=== PATIENT | female | born 1975 | race African-American/Black ===

== ENCOUNTER 2024-02-13 22:04 | Inpatient (IN) | payer OTHER ==
[2024-02-13 22:51] VITALS: RESP 16; BMI 19.2
[2024-02-14] MEDS ORDERED: BENZOCAINE/MENTHOL (CHLORASEPTIC ) LOZENGE MM PRN (02:42)
[2024-02-14] MEDS ORDERED: MAGNESIUM HYDROX 2400MG/30ML ORAL SUSPENSION 30 ML CUP PO PRN (02:42)
[2024-02-14] MEDS ORDERED: IBUPROFEN 600 MG TABLET (FP) PO PRN (02:42)
[2024-02-14] MEDS ORDERED: BENZONATATE 200 MG CAPSULE PO PRN (02:42)
[2024-02-14] MEDS ORDERED: NICOTINE POLACRILEX 2 MG GUM BUC PRN (02:42)
[2024-02-14] MEDS ORDERED: ACETAMINOPHEN 325 MG TABLET (FP) PO PRN ×2 (02:42→18:09)
[2024-02-14] MEDS ORDERED: NALOXONE (NYS OPIOID OVERDOSE PROGRAM) 4 MG/0.1 ML SPRAY NS PRN (02:42)
[2024-02-14] MEDS ORDERED: POLYETHYLENE GLYCOL (HEALTHYLAX) 3350 17 GM PACKET PO PRN (02:42)
[2024-02-14] MEDS ORDERED: IBUPROFEN 400 MG TABLET (FP) PO PRN (02:42)
[2024-02-14] MEDS ORDERED: guaiFENesin 600 MG TABLET.ER (FP) PO PRN (02:42)
[2024-02-14] MEDS ORDERED: MAG HYDROX/AL HYDROX/SIMETH 30 ML UNIT-DOSE CUP PO PRN (02:42)
[2024-02-14] MEDS ORDERED: NALOXONE HCL 0.4 MG/ML VIAL IVPUSH PRN (02:42)
[2024-02-14] MEDS ORDERED: LOPERAMIDE HCL 2 MG CAPSULE PO PRN (02:42)
[2024-02-14] MEDS: NICOTINE 14 MG/24 HOURS TOPICAL PATCH TD SCH (05:30)
[2024-02-14] MEDS: PRENATAL VITAMINS W/ FOLIC ACID TABLET (FP) PO SCH (05:30)
[2024-02-14] MEDS: ONDANSETRON 8 MG TABLET (FP) PO ONE (08:42)
[2024-02-14 08:44] VITALS: BP 202/131; PULSE 98; TEMP 97.5
[2024-02-14] MEDS: TRIMETHOBENZAMIDE HCL 200MG/2ML INJ IM ONE (08:50)
[2024-02-14] MEDS: cloNIDine HCL 0.1 MG TABLET PO ONE (09:35)
[2024-02-14] MEDS: methaDONE HCL 10 MG TABLET PO ONE (09:35)
[2024-02-14] MEDS ORDERED: ACETAMINOPHEN 1000 MG/100 ML BAG IVPB PRN (18:08)
[2024-02-14] MEDS ORDERED: MELATONIN 5 MG TABLETS PO SCH (22:00)
[2024-02-14] MEDS ORDERED: THIAMINE 100 MG TABLET PO SCH (22:00)
[2024-02-15] MEDS ORDERED: methaDONE HCL 10 MG TABLET PO SCH (06:00)
[2024-02-23] MEDS ORDERED: ERGOCALCIFEROL (VIT D2) 50,000 UNIT (1.25 MG) CAPSULE PO SCH (10:00)
== END 2024-02-14 23:14 | disposition short-term general hospital (02) | DRG 772 ==
LOC: YASAS 22:04 → Y3NR 02-14 02:48
PROVIDERS: ADMIT Allergy & Immunology; ATTEND Psychiatry & Neurology Pain Medicine
PROC: HZ42ZZZ Group Counseling for Substance Abuse Treatment, Cognitive-Behavioral (ICD-10-PCS; principal; 2024-02-14)
DX: F10.20 Alcohol dependence, uncomplicated (principal); F11.20 Opioid dependence, uncomplicated; F17.210 Nicotine dependence, cigarettes, uncomplicated; F41.9 Anxiety disorder, unspecified; I10 Essential (primary) hypertension; R11.2 Nausea with vomiting, unspecified; R42 Dizziness and giddiness; Z93.3 Colostomy status; Z59.00 Homelessness unspecified
CPT/HCPCS: 80305; 80307

== ENCOUNTER 2024-02-14 09:56 | Inpatient (IN) | payer OTHER ==
[2024-02-14] MEDS ORDERED: hydrALAZINE HCL 20 MG/ML VIAL ONE (10:39)
[2024-02-14] MEDS ORDERED: BUPRENORPHINE/NALOXONE 8 MG/2 MG FILM PACKET ONE (10:39)
[2024-02-14] MEDS: BUPRENORPHINE/NALOXONE 8 MG/2 MG FILM PACKET SL ONE (10:45)
[2024-02-14] MEDS: hydrALAZINE HCL 20 MG/ML VIAL IVPUSH ONE (10:45)
[2024-02-14] MEDS: cloNIDine HCL 0.1 MG TABLET PO ONE ×2 (11:10→13:32)
[2024-02-14] MEDS ORDERED: ACETAMINOPHEN INJECTION 100 ML IVPB ONE (11:11)
[2024-02-14 11:16] LABS: HEMATOCRIT 44.6 % (32.4-45.2); HEMOGLOBIN 14.5 GM/dL (10.7-15.3); MCH 28.2 pg (25.7-33.7); MCHC 32.5 g/dl (32.0-36.0); MEAN CELL VOLUME 86.7 fl (80-96); MEAN PLT VOLUME 8.9 fl (7.5-11.1); PLATELET COUNT 289 10^3/uL (134-434); RBC 5.15 M/mm3 (3.60-5.2); RDW 15.7 % (11.6-15.6); WHITE BLOOD COUNT 9.8 K/mm3 (4.0-10.0)
[2024-02-14] MEDS: ACETAMINOPHEN 1000 MG/100 ML BAG IVPB ONE (11:16)
[2024-02-14 11:35] LABS: POTASSIUM 4.4 mmol/L (3.5-5.1)
[2024-02-14 11:38] LABS: ALBUMIN 3.9 g/dl (3.4-5.0); BLOOD UREA NITROGEN 20.2 mg/dL (7-18); CALCIUM 10.9 mg/dL (8.5-10.1); MAGNESIUM 2.2 mg/dL (1.8-2.4)
[2024-02-14 11:41] LABS: CREATININE 0.9 mg/dL (0.55-1.3)
[2024-02-14 11:44] LABS: BILIRUBIN,TOTAL 0.2 mg/dL (0.2-1); TOT PROT 8.1 g/dl (6.4-8.2)
[2024-02-14 11:46] LABS: N-TERMINAL BNP 519.8 pg/ml (5-125)
[2024-02-14] MEDS ORDERED: HALOPERIDOL LACTATE 5 MG/ML ONE (11:56)
[2024-02-14] MEDS: HALOPERIDOL LACTATE 5 MG/ML IM ONE (11:59)
[2024-02-14] MEDS ORDERED: cloNIDine HCL 0.1 MG TABLET ONE (13:29)
[2024-02-14] MEDS ORDERED: TRIMETHOBENZAMIDE HCL 200MG/2ML INJ IM ONE (13:45)
[2024-02-14] MEDS ORDERED: HYDROmorphone HCl 2 MG/ML VIAL ONE (14:15)
[2024-02-14] MEDS ORDERED: dilTIAZem HCL 125 MG/25 ML - 25 ML VIAL ONE (14:16)
[2024-02-14] MEDS ORDERED: niCARdipine HCL 25 MG/10 ML AMPUL IVPB ONE (14:17)
[2024-02-14] MEDS: NICARDIPINE 25 MG in DEXTROSE 5%-WATER - 240 ML IVPB SCH (14:30)
[2024-02-14] MEDS: SODIUM CHLORIDE 0.9% 500 ML INFUS.BAG IV ONE (14:31)
[2024-02-14] MEDS: HYDROmorphone HCl 2 MG/ML VIAL IVPUSH ONE (14:31)
[2024-02-14] MEDS: methaDONE HCL 10 MG TABLET PO SCH (16:16)
[2024-02-14] MEDS ORDERED: ACETAMINOPHEN 1000 MG/100 ML BAG IVPB PRN (18:40)
[2024-02-14 18:48] LABS: URINE APPEARANCE CLEAR; URINE BILIRUBIN NEGATIVE (NEGATIVE); URINE COLOR YELLOW; URINE GLUCOSE (UA) 100 (NEGATIVE); URINE KETONE NEGATIVE (NEGATIVE)
[2024-02-14 18:49] LABS: PH,URINE >= 9.0 (5.0-8.0); URINE LEUK ESTERASE NEGATIVE (NEGATIVE); URINE NITRITE NEGATIVE (NEGATIVE); URINE PROTEIN TRACE (NEGATIVE); URINE UROBILINOGEN 0.2 mg/dL (0.2-1.0)
[2024-02-14] MEDS ORDERED: methaDONE HCL 10 MG TABLET PO SCH (19:45)
[2024-02-14 19:56] LABS: EPI CELLS 1.1 /uL (0-25.1); HYALINE CASTS 0.29 /uL (0-3.1); URINE BACTERIA 1.8 /uL (0-1359); URINE RBC 175.6 /uL (0-23.9); URINE WBC 1.8 /uL (0-25.8)
[2024-02-14] MEDS: ONDANSETRON 4 MG/2 ML VIAL IVPUSH ONE (20:11)
[2024-02-14] MEDS: MELATONIN 5 MG TABLETS PO SCH (21:31)
[2024-02-14] MEDS: CHLORHEXIDINE GLUCONATE 4% CLEANSER FOR DECOLONIZATION TP SCH (21:32)
[2024-02-14] MEDS: MUPIROCIN 2% TOPICAL OINTMENT FOR DECOLONIZATION NS SCH (21:32)
[2024-02-15] MEDS ORDERED: niCARdipine HCL 25 MG/10 ML AMPUL IVPB ONE (04:16)
[2024-02-15] MEDS: methaDONE HCL 10 MG TABLET PO SCH (06:21)
[2024-02-15 08:14] LABS: BASO % 0.2 % (0-2.0); EOS % 0.1 % (0-4.5); HEMATOCRIT 44.9 % (32.4-45.2); HEMOGLOBIN 14.5 GM/dL (10.7-15.3); INR 0.86 (0.83-1.09); LYMPH % 9.9 % (8-40); MCH 27.8 pg (25.7-33.7); MCHC 32.2 g/dl (32.0-36.0); MEAN CELL VOLUME 86.1 fl (80-96); MEAN PLT VOLUME 8.7 fl (7.5-11.1); MONO % 4.7 % (3.8-10.2); NEUT % 85.1 % (42.8-82.8); PLATELET COUNT 356 10^3/uL (134-434); PROTHROMBIN TIME (PATIENT) 9.8 SEC (9.7-13.0); RBC 5.22 M/mm3 (3.60-5.2); RDW 16.1 % (11.6-15.6); WHITE BLOOD COUNT 12.4 K/mm3 (4.0-10.0)
[2024-02-15 08:17] LABS: ACTIVATED PTT 24.5 SECONDS (25.2-36.5)
[2024-02-15 08:36] LABS: CALCIUM 10.4 mg/dL (8.5-10.1); CREATININE 0.9 mg/dL (0.55-1.3); MAGNESIUM 2.1 mg/dL (1.8-2.4)
[2024-02-15 08:38] LABS: ALBUMIN 3.9 g/dl (3.4-5.0); BLOOD UREA NITROGEN 16.4 mg/dL (7-18); TOT PROT 8.4 g/dl (6.4-8.2)
[2024-02-15 08:40] LABS: PHOSPHOROUS 5.1 mg/dL (2.5-4.9)
[2024-02-15 08:42] LABS: BILIRUBIN,TOTAL 0.6 mg/dL (0.2-1)
[2024-02-15] MEDS: FAMOTIDINE 20 MG/50 ML IVPB 20 MG/50 ML MG IVPB SCH ×2 (10:18→21:03)
[2024-02-15] MEDS: ENOXAPARIN NA (PORCINE) 30 MG/0.3 ML DISP.SYRIN SQ SCH (12:18)
[2024-02-15] MEDS: amLODIPine BESYLATE 5 MG TABLET (FP) PO SCH (13:18)
[2024-02-15] MEDS ORDERED: ACETAMINOPHEN 1000 MG/100 ML BAG IVPB PRN (16:25)
[2024-02-15] MEDS: diphenhydrAMINE HCL 25 MG CAPSULE (FP) PO PRN (19:01)
[2024-02-15] MEDS: MELATONIN 5 MG TABLETS PO SCH (21:03)
[2024-02-15 22:04] VITALS: RESP 18
[2024-02-16] MEDS: methaDONE HCL 10 MG TABLET PO SCH (06:30)
[2024-02-16 06:41] VITALS: BP 125/75; PULSE 72; TEMP 98.8
[2024-02-16 07:18] LABS: BASO % 0.6 % (0-2.0); EOS % 1.5 % (0-4.5); HEMOGLOBIN 12.8 GM/dL (10.7-15.3); LYMPH % 36.3 % (8-40); MCH 28.3 pg (25.7-33.7); MCHC 32.8 g/dl (32.0-36.0); MEAN CELL VOLUME 86.4 fl (80-96); MEAN PLT VOLUME 8.5 fl (7.5-11.1); MONO % 11.9 % (3.8-10.2); NEUT % 49.7 % (42.8-82.8); PLATELET COUNT 297 10^3/uL (134-434); RBC 4.52 M/mm3 (3.60-5.2); RDW 15.8 % (11.6-15.6); WHITE BLOOD COUNT 6.2 K/mm3 (4.0-10.0)
[2024-02-16 07:34] LABS: POTASSIUM 4.6 mmol/L (3.5-5.1)
[2024-02-16 07:36] LABS: CALCIUM 9.9 mg/dL (8.5-10.1)
[2024-02-16 07:37] LABS: BLOOD UREA NITROGEN 31.5 mg/dL (7-18)
[2024-02-16 07:40] LABS: BILIRUBIN,DIRECT 0.1 mg/dL (0.0-0.2); CREATININE 1.1 mg/dL (0.55-1.3)
[2024-02-16 07:41] LABS: BILIRUBIN,TOTAL 0.2 mg/dL (0.2-1)
[2024-02-16 07:44] LABS: TOT PROT 6.3 g/dl (6.4-8.2)
[2024-02-16] MEDS: ENOXAPARIN NA (PORCINE) 30 MG/0.3 ML DISP.SYRIN SQ SCH (10:24)
[2024-02-16 12:43] VITALS: BMI 18.5
== END 2024-02-16 13:55 | disposition other institution (70) | DRG 199 ==
LOC: JER 09:56 → JERBED 13:30 → JICU 16:31 → J7W 02-15 16:23
PROVIDERS: ADMIT Internal Medicine Pulmonary Disease; ATTEND Internal Medicine
DX: I16.0 Hypertensive urgency (principal); K86.1 Other chronic pancreatitis; F11.23 Opioid dependence with withdrawal; F17.210 Nicotine dependence, cigarettes, uncomplicated; R11.2 Nausea with vomiting, unspecified; R74.01 Elevation of levels of liver transaminase levels; Z59.00 Homelessness unspecified; Z93.2 Ileostomy status; Z93.3 Colostomy status; I10 Essential (primary) hypertension
CPT/HCPCS: 36415; 70450-TC; 71045-TC-FY; 73552-TC-LT-FY; 74018-TC-FY; 74177-TC; 80048; 80053; 80076; 81003; 82150; 83605; 83690; 83735; 83880; 84100; 84484; 84703; 85025; 85027; 85610; 85730; 86803; 87086; 87340; 87517; 87635; 93005; 93010; 99285-25; J0131; Q9967

== ENCOUNTER 2024-02-16 13:55 | Inpatient (IN) | payer OTHER ==
[2024-02-16 14:46] VITALS: BMI 18.5
[2024-02-16] MEDS ORDERED: POLYETHYLENE GLYCOL (HEALTHYLAX) 3350 17 GM PACKET PO PRN (15:27)
[2024-02-16] MEDS ORDERED: BENZONATATE 200 MG CAPSULE PO PRN (15:27)
[2024-02-16] MEDS ORDERED: NALOXONE HCL (KLOXXADO) 8 MG SPRAY NS PRN (15:27)
[2024-02-16] MEDS ORDERED: MAGNESIUM HYDROX 2400MG/30ML ORAL SUSPENSION 30 ML CUP PO PRN (15:27)
[2024-02-16] MEDS ORDERED: NALOXONE HCL 0.4 MG/ML VIAL IM PRN (15:27)
[2024-02-16] MEDS ORDERED: guaiFENesin 600 MG TABLET.ER (FP) PO PRN (15:27)
[2024-02-16] MEDS ORDERED: BENZOCAINE/MENTHOL (CHLORASEPTIC ) LOZENGE MM PRN (15:27)
[2024-02-16] MEDS: MELATONIN 5 MG TABLETS PO SCH (21:35)
[2024-02-16] MEDS: THIAMINE 100 MG TABLET PO SCH (21:35)
[2024-02-16] MEDS: hydrOXYzine PAMOATE 25 MG CAPSULE (FP) PO PRN (21:35)
[2024-02-17] MEDS: MELATONIN 5 MG TABLETS PO ONE (02:46)
[2024-02-17] MEDS: amLODIPine BESYLATE 5 MG TABLET (FP) PO SCH (10:02)
[2024-02-17] MEDS: PRENATAL VITAMINS W/ FOLIC ACID TABLET (FP) PO SCH (10:02)
[2024-02-17] MEDS: cloNIDine HCL 0.1 MG TABLET PO SCH (10:21)
[2024-02-17] MEDS: methaDONE HCL 10 MG TABLET PO ONE (10:21)
[2024-02-17] MEDS: methaDONE HCL 10 MG TABLET PO SCH (10:50)
[2024-02-17] MEDS ORDERED: methaDONE HCL 10 MG TABLET PO PRN (11:39)
[2024-02-17] MEDS: QUEtiapine FUMARATE 50 MG TABLET PO SCH (21:03)
[2024-02-17] MEDS ORDERED: QUEtiapine FUMARATE 100 MG TABLET (FP) PO SCH (22:00)
[2024-02-18] MEDS: methaDONE 40 MG, methaDONE 10 MG PO ONE (10:07)
[2024-02-18] MEDS ORDERED: AMMONIUM LACTATE 12% LOTION 225 GM BOTTLE TP PRN (16:59)
[2024-02-18] MEDS: diphenhydrAMINE HCL 25 MG CAPSULE (FP) PO ONE (17:25)
[2024-02-19] MEDS ORDERED: cloNIDine HCL 0.1 MG TABLET PO PRN
[2024-02-19] MEDS: methaDONE 40 MG, methaDONE 20 MG PO SCH (06:49)
[2024-02-19] MEDS: MAG HYDROX/AL HYDROX/SIMETH 30 ML UNIT-DOSE CUP PO PRN (08:58)
[2024-02-19] MEDS ORDERED: methaDONE 40 MG, methaDONE 20 MG PO ONE (10:00)
[2024-02-19] MEDS: amLODIPine BESYLATE 5 MG TABLET (FP) PO SCH (10:21)
[2024-02-19] MEDS: diphenhydrAMINE HCL 25 MG CAPSULE (FP) PO PRN (15:45)
[2024-02-19] MEDS: QUEtiapine FUMARATE 100 MG TABLET (FP) PO SCH (21:04)
[2024-02-20] MEDS ORDERED: methaDONE 40 MG, methaDONE 30 MG PO ONE (10:00)
[2024-02-20] MEDS: LOPERAMIDE HCL 2 MG CAPSULE PO PRN (10:50)
[2024-02-21] MEDS ORDERED: methaDONE HCL 40 MG DISPERSABLE TABLET PO ONE (10:00)
[2024-02-22] MEDS ORDERED: methaDONE 80 MG, methaDONE 10 MG PO ONE (10:00)
[2024-02-22] MEDS: IBUPROFEN 600 MG TABLET (FP) PO PRN (18:25)
[2024-02-24] MEDS: IBUPROFEN 400 MG TABLET (FP) PO PRN (07:00)
[2024-02-24] MEDS: ACETAMINOPHEN 325 MG TABLET (FP) PO PRN (15:26)
[2024-02-25] MEDS: MELATONIN 5 MG TABLETS PO SCH (21:12)
[2024-02-26] MEDS: methaDONE 40 MG, methaDONE 30 MG PO SCH (05:50)
[2024-02-26] MEDS ORDERED: methaDONE HCL 40 MG DISPERSABLE TABLET PO SCH (06:00)
[2024-02-29 07:13] VITALS: RESP 18
[2024-02-29] MEDS: SUVOREXANT 10 MG TABLET PO PRN (21:49)
[2024-03-01] MEDS ORDERED: VITAMINS A AND D TOPICAL OINTMENT TP PRN (10:00)
[2024-03-01] MEDS: OFLOXACIN 0.3% OTIC SOLUTION 5 ML BOTTLE AD SCH (12:18)
[2024-03-01] MEDS ORDERED: methaDONE HCL 40 MG DISPERSABLE TABLET PO SCH (13:04)
[2024-03-01] MEDS ORDERED: SIMETHICONE 80 MG TAB.CHEW (FP) PO PRN (13:11)
[2024-03-01] MEDS: DOCUSATE SODIUM 100 MG CAPSULE (FP) PO SCH (21:57)
[2024-03-02] MEDS ORDERED: methaDONE HCL 40 MG DISPERSABLE TABLET PO SCH (06:00)
[2024-03-02] MEDS: methaDONE 40 MG, methaDONE 20 MG PO SCH (06:01)
[2024-03-02 07:03] VITALS: TEMP 97.4
[2024-03-02 09:04] VITALS: BP 97/55; PULSE 109
[2024-03-02] MEDS: amLODIPine BESYLATE 2.5 MG TABLET (FP) PO SCH (09:42)
== END 2024-03-02 12:15 | disposition home or self-care (01) | DRG 772 ==
LOC: YASAS 13:55 → Y3NR 17:50 → Y5N 02-17 12:56
PROVIDERS: ADMIT Allergy & Immunology; ATTEND Psychiatry & Neurology Pain Medicine
PROC: HZ42ZZZ Group Counseling for Substance Abuse Treatment, Cognitive-Behavioral (ICD-10-PCS; principal; 2024-02-16)
DX: F10.20 Alcohol dependence, uncomplicated (principal); F11.20 Opioid dependence, uncomplicated; F14.20 Cocaine dependence, uncomplicated; F17.210 Nicotine dependence, cigarettes, uncomplicated; F19.282 Other psychoactive substance dependence with psychoactive substance-induced sleep disorder; F32.9 Major depressive disorder, single episode, unspecified; G47.00 Insomnia, unspecified; I10 Essential (primary) hypertension; K59.00 Constipation, unspecified; K86.0 Alcohol-induced chronic pancreatitis; Z86.59 Personal history of other mental and behavioral disorders; Z93.3 Colostomy status; Z93.2 Ileostomy status; Z87.828 Personal history of other (healed) physical injury and trauma; Z59.01 Sheltered homelessness; Z56.0 Unemployment, unspecified
CPT/HCPCS: 80305; 80307; 81025; 87811; 93005; 93010